=== PATIENT | female | born 1950 | race American Indian/Alaskan Native ===

== ENCOUNTER 2016-08-06 10:26 | Outpatient (CLI) | payer MEDICARE ==
--- NOTE | 2016-08-06 13:10 | Ultrasound Report ---
BILATERAL DIGITAL DIAGNOSTIC MAMMOGRAM with CAD and BILATERAL BREAST ULTRASOUND: 08/06/16 10:26:00 CLINICAL: History of abnormal screening mammogram October 2015 COMPARISON:11/16/15 mammogram from [place], [place] FINDINGS: The breasts are predominantly fatty.Low-density partially circumscribed asymmetries are again identified in the inner breasts on the CC views and persist with spot compression. Ultrasound of the inner right breast was performed and demonstrated a benign cyst at 2 o'clock 7 cm from the nipple. It measures 6 x 3 x 7 mm and correlates with the mammographic density. No solid mass or shadowing. Ultrasound of the inner left breast was performed and demonstrated a benign cyst at 9 o'clock 7 cm from the nipple. It correlates with the mammographic density. No solid mass or shadowing. IMPRESSION: Bilateral benign cysts and no suspicious finding. BI-RADS CATEGORY: 2 - - Benign RECOMMENDATION: Routine mammographic screening in one year. ACR BI-RADS MAMMOGRAPHIC CODES: 0 = Needs additional imaging evaluation; 1 = Negative; 2 = Benign; 3 = Probably benign; 4 = Suspicious; 5 = Malignant; 6 = Known biopsy-proven malignancy COMMENT: 1. Dense breast tissue, i.e., adenosis, fibrocystic changes, etc., may obscure an underlying neoplasm. 2. Approximately 10% of cancers are not detected with mammography. 3. A negative mammography report should not delay biopsy if a clinically suspicious mass is present. COMMENT: Patient follow-up letters are generated by our [employer] application.
== END 2016-08-06 10:27 | disposition home or self-care (01) ==
LOC: SPVWC 10:26
PROVIDERS: ATTEND Internal Medicine
DX: N60.02 Solitary cyst of left breast (principal); R92.8 Other abnormal and inconclusive findings on diagnostic imaging of breast
CPT/HCPCS: 76642; G0204; 77066

== ENCOUNTER 2016-12-22 16:14 | Outpatient (CLI) | payer MEDICARE | END 2016-12-22 16:15 | disposition home or self-care (01) | LOC: VAS 16:14 | PROVIDERS: ATTEND Internal Medicine | DX: M79.605 Pain in left leg (principal); R22.42 Localized swelling, mass and lump, left lower limb ==

== ENCOUNTER 2017-08-24 08:30 | Outpatient (CLI) | payer MEDICARE ==
--- NOTE | 2017-08-25 13:37 | Mammography Report ---
BILATERAL DIGITAL SCREENING MAMMOGRAM with CAD : 08/24/17 08:30:00 CLINICAL: Routine screening.Known bilateral cysts. COMPARISON:08/06/16 FINDINGS: The breasts are heterogeneously dense, which may obscure small masses. No mass, architectural distortion or suspicious calcifications. IMPRESSION: No mammographic evidence of malignancy. BI-RADS CATEGORY: 2 -- Benign RECOMMENDATION: Routine mammographic screening in one year. COMMENT: Patient follow-up letters are generated by our [employer] application.
== END 2017-08-24 08:31 | disposition home or self-care (01) ==
LOC: SPVWC 08:30
PROVIDERS: ATTEND Internal Medicine
DX: Z12.31 Encounter for screening mammogram for malignant neoplasm of breast (principal)
CPT/HCPCS: 77067